=== PATIENT | female | born 1985 | race Native Hawaiian/Other Pacific Islander ===

== ENCOUNTER 2017-10-04 07:17 | Emergency (ER) | payer OTHER ==
[2017-10-04 08:20] VITALS: BMI 28.3
[2017-10-04] MEDS ORDERED: Lactated Ringer's 1,000 ML IV SCH (08:30)
[2017-10-04 08:35] LABS: BASO % 0.1 % (0.0-2.0); EOS # 0.1 K/uL (0.0-0.7); EOS % 1.5 % (0.0-4.0); HEMOGLOBIN 15.2 g/dL (12.0-16.0); LYMPH # 1.1 K/uL (1.0-4.3); LYMPH % 12.1 % (20.0-40.0); MEAN CORPUSCULAR HEMOGLOBIN 31.5 pg (27.0-31.0); MEAN CORPUSCULAR HGB CONC 34.2 g/dL (33.0-37.0); MEAN PLATELET VOLUME 9.5 fl (7.2-11.7); MONO # 0.6 K/uL (0.0-0.8); MONO % 7.3 % (0.0-10.0); NEUT # 6.9 K/uL (1.8-7.0); RBC 4.82 Mil/uL (3.80-5.20); RED CELL DISTRIBUTION WIDTH 14.8 % (11.5-14.5); WHITE BLOOD COUNT 8.8 K/uL (4.8-10.8)
[2017-10-04 09:28] LABS: SQUAMOUS EPITHIAL 1 /hpf (0-5); URINE BACTERIA MOD (<OCC); URINE BILIRUBIN NEGATIVE (NEGATIVE); URINE BLOOD NEGATIVE (NEGATIVE); URINE CLARITY CLEAR (Clear); URINE COLOR YELLOW (YELLOW); URINE GLUCOSE (UA) NEG (Normal); URINE LEUKOCYTE ESTERASE NEG Leu/uL (Negative); URINE PROTEIN NEGATIVE (NEGATIVE); URINE UROBILINOGEN 0.2-1.0 mg/dL (0.2-1.0)
--- NOTE | 2017-10-04 10:20 | US ---
PROCEDURE: OB Pelvic Ultrasound HISTORY: SROM. Exam done for cervical length LMP: 02/14/2017 COMPARISON: None available. FINDINGS: UTERUS: Heart rate: 141 bpm. GONSALO: 16.9 cm Placenta: Anterior. Presentation: Cephalic. CERVIX: Measures 4.1 cm. Long and closed. No cervical abnormality seen. FREE FLUID: None. OTHER FINDINGS: None. IMPRESSION: Cervix long and closed, measuring 4.1 cm.
[2017-10-04] MEDS ORDERED: Betamethasone Soluspan 30 mg/5mL Inj Susp IM ONE (10:41)
--- NOTE | 2017-10-04 11:08 | OBHP ---
Datetime: 10/04/2017 10:40 Admit Comment, IP Provider: OB Hospitalist on-call. Sign out rec'd from Dr Wiggins Cervix closed; no discharge FFN and sono ordered UA neg / FFN POS / CLM 4CM / GONSALO-16 (VERBAL REPORT) _ a: IUP AT 33+w/ threatent PTL PLAN: MFM consulted...will give Betamethasone on dose now and in 24h. Conditoin, testing and treatment discussed. She wanted me to speka with her OBGYN Dr Merlos at [facility]. He understood results and is aware. He will see her next week. Will give Betamethasone and one more in 24h. labor instructions given to pt. [place] [address] [address] [place]. She understands to come back if she has symptoms Datetime: 10/04/2017 07:43 IP Adm Impression: , intrauterine IP Admit Plan: Observation/Evaluation Pelvic Type - PN: Adequate Extremities - PN: Normal Abdomen - PN: Normal Back - PN: Not Done Breast - PN: Not Done Lungs - PN: Normal Heart - PN: Normal Thyroid - PN: Normal Neurologic - PN: Normal HEENT - PN: Normal General - PN: Normal FHR - Baseline A Provider: 130 Pool Provider: Negative EGA AdmitDate IP: 33.2 Vital Signs Provider: Reviewed; Within Normal Limits IP Chief Complaint: Suspected ruptured membranes NICHD Variability Prov Fetus A: Moderate 6-25bpm NICHD Accel Fetus A IP Provider: [id number] FHR Category Provider Fetus A: Category I Dilatation, Provider: closed Effacement, Provider: thick Station, Provider: long Genitourinary Exam: Normal DTRs - PN: Not Done
[2017-10-04 22:48] VITALS: BP 120/82; PULSE 85; RESP 18; TEMP 97.9; O2SAT 100
--- NOTE | 2017-10-07 11:07 | OBHP ---
Datetime: 10/04/2017 10:40 Comments, ACOG Physical Exam: Previous note: CC: "leaking of fluids" HPI: 32 YO @ 33.2wks IUP presents to DM for leaking of fluids. Pt states that around 5AM tor qu[place] woke up to go to the bathroom, and went back to sleep. Around 6 AM she woke up and noticed that her panties were wet, and subsequently noticed that she was leaking, and contined to leak. In addition, pt noticed some dark brown spotting. Endorsing good FM, no CTX, no VB. Not currently sexually active. MD: Zacarias Mccollum ObGx: IVF, prime. Growth u/s was on Saturday 09/30 and was told that everything was okay; baby was 84 th percentile GYNHx: denies STIs PMH: hypothyroidism, GDM (diet controlled) SUrgH: denies FH: HTN, DM SH: , denies ETOH, smoking and illict drug use Allergies: NKDA Meds: levo 75mg (x6 days), levo 150mg (x1day), PNV, vitamin D, and omega 3 PE GEN: NAD Cardio: S1S2 no additional heart sounds Resp: clear breath sounds b/l Abdomen: Gravid, NT, BS+ Neuro: AAO x 3 Ext: mild pedel edema, NT FM: 150, catagory I, with occasional ctx Spec: cervix is long and closed, no pooling. A/P: 32 YO @ 33.2wks IUP, hypothyroidism, GDM (Diet controlled) is evaluted for PPROM, and pr eterm labor. Speculum exam is neg with occ ctx on monitor. -continue monitor -blood work -FFN -U/S with cervical length -IVF -UA Pt discussed with attending Dr. Feliciano Abarca, PGY I
== END 2017-10-04 11:15 | disposition home or self-care (01) ==
LOC: H.EROB2 07:17
DX: O47.03 False labor before 37 completed weeks of gestation, third trimester (principal); O99.89 Other specified diseases and conditions complicating pregnancy, childbirth and the puerperium; E03.9 Hypothyroidism, unspecified; Z3A.33 33 weeks gestation of pregnancy; O24.410 Gestational diabetes mellitus in pregnancy, diet controlled
CPT/HCPCS: 76815; 81003; 82731; 82948; 85025; 86850; 86900; 96360; 96361; 96372; 99283; J0702; J7120